=== PATIENT | male | born 1960 | race Caucasian/White ===

== ENCOUNTER 2022-06-18 14:17 | Inpatient (IN) | payer OTHER ==
[~2022-06-18] VITALS: Ht 177.8 cm; Wt 105.5 kg
[~2022-06-18 14:17] MED LIST: OME20GT PO
[2022-06-18 15:17] LABS: Basophils # (auto) 0.1 10 ^3/uL (0-0.2); Basophils % (auto) 0.9 % (0.0-2.0); Eosinophils # (auto) 0.1 10 ^3/uL (0-0.8); Eosinophils % (auto) 1.5 % (0.0-7.0); Hematocrit 43.8 % (41.0-53.0); Hemoglobin 14.8 g/dL (13.5-17.5); Lymphocytes # (auto) 3.4 10 ^3/uL (0.4-5.4); Lymphocytes % (auto) 49.3 % (10.0-50.0); Mean Corpuscular Hemoglobin 35.2 pg (28.0-32.0); Mean Corpuscular Hgb Conc. 33.9 g/dL (32.0-36.0); Mean Corpuscular Volume 104.1 fL (80.0-100.0); Monocytes # (auto) 0.7 10 ^3/uL (0-1.3); Monocytes % (auto) 10.6 % (0.0-12.0); Neutrophils # (auto) 2.6 10 ^3/uL (1.6-8.6); Neutrophils % (auto) 37.7 % (37.0-80.0); Nucleated Red Blood Cells % 0.1 %; Red Blood Cells 4.21 10^6/uL (4.5-5.90); Red Cell Distribution Width 14.9 % (11.8-14.3); White Blood Cell 6.9 10^3/uL (4.4-10.8)
[2022-06-18 15:32] LABS: INR 1.11 (0.9-1.15); Partial Thromboplastin Time 27.6 sec (24.6-33.4)
[2022-06-18 15:34] LABS: Calcium 8.7 mg/dL (8.5-10.1); Magnesium 1.9 mg/dL (1.6-2.6); Potassium 4.1 mmol/L (3.5-5.1)
[2022-06-18 15:38] LABS: BUN/Creatinine Ratio 8.9; Bilirubin, Total 2.3 mg/dL (0.2-1.0); Total Protein 7.1 g/dL (6.4-8.2)
[2022-06-18] MEDS ORDERED: ENOXAPARIN SOD 120 MG/0.8 ML SYRINGE SC ONE (17:15)
[2022-06-18] MEDS ORDERED: FUROSEMIDE 40 MG/4 ML VIAL IV ONE (17:30)
[2022-06-18] MEDS ORDERED: MORPHINE SULFATE 4 MG/ML SYR/VIAL IV ONE (17:30)
[2022-06-18] MEDS ORDERED: HEPARIN SODIUM (PORCINE) 5000 UNITS/ML 1ML VIAL IV ONE (21:30)
[2022-06-18] MEDS: HEPARIN DRIP/D5W 100UNITS/ML 250 ML IV SCH (22:00)
[2022-06-18 22:07] LABS: INR 1.17 (0.9-1.15); Partial Thromboplastin Time 34.7 sec (24.6-33.4)
[2022-06-18] MEDS ORDERED: ATORVASTATIN 20 MG TAB PO ONE (22:15)
[2022-06-18] MEDS ORDERED: ACETAMINOPHEN 325 MG TAB PO PRN (22:15)
[2022-06-18] MEDS ORDERED: MORPHINE SULFATE INJ 2 MG/ml SYRG IV PRN (22:15)
[2022-06-18] MEDS ORDERED: NITROGLYCERIN 0.4 MG SL TAB SL PRN (22:15)
[2022-06-18] MEDS ORDERED: ONDANSETRON HCL 4 MG/2 ML VIAL IV PRN (22:15)
[2022-06-18 22:20] LABS: Urine WBC None Seen /hpf (0 - 3)
[2022-06-18 22:26] LABS: Urine Bacteria NONE SEEN /hpf (None Seen); Urine Blood Negative /uL (Negative); Urine Specific Gravity 1.006 (1.001-1.035)
[2022-06-18 22:41] LABS: Hematocrit 40.3 % (41.0-53.0); Hemoglobin 13.8 g/dL (13.5-17.5); Mean Corpuscular Hemoglobin 35.4 pg (28.0-32.0); Mean Corpuscular Hgb Conc. 34.1 g/dL (32.0-36.0); Mean Corpuscular Volume 103.8 fL (80.0-100.0); Red Blood Cells 3.89 10^6/uL (4.5-5.90); Red Cell Distribution Width 15.4 % (11.8-14.3); White Blood Cell 8.5 10^3/uL (4.4-10.8)
[2022-06-18 22:42] LABS: Basophils % (manual) 0 (0.0-2.0); Blast Cells 0; Metamyelocytes % 0; Myelocytes % 0; Promyelocytes % 0; Reactive Lymphocytes 0
[2022-06-18 23:51] LABS: Band Neutrophils % (manual) 3; Eosinophils % (manual) 4 (0-7); Lymphocytes % (manual) 56 (10.0-50.0); Monocytes % (manual) 5 (0-12)
[2022-06-19] VITALS (9 sets, daily range): BP systolic 93–119; BP diastolic 62–84
[2022-06-19 05:16] LABS: Basophils # (auto) 0.1 10 ^3/uL (0-0.2); Eosinophils # (auto) 0.3 10 ^3/uL (0-0.8); Lymphocytes # (auto) 4.1 10 ^3/uL (0.4-5.4); Mean Corpuscular Volume 104.9 fL (80.0-100.0); Monocytes # (auto) 0.7 10 ^3/uL (0-1.3)
[2022-06-19 05:17] LABS: Basophils % (auto) 0.9 % (0.0-2.0); Eosinophils % (auto) 4.2 % (0.0-7.0); Hematocrit 40.8 % (41.0-53.0); Hemoglobin 14.2 g/dL (13.5-17.5); Lymphocytes % (auto) 54.7 % (10.0-50.0); Mean Corpuscular Hemoglobin 36.5 pg (28.0-32.0); Mean Corpuscular Hgb Conc. 34.8 g/dL (32.0-36.0); Monocytes % (auto) 9.1 % (0.0-12.0); Neutrophils # (auto) 2.3 10 ^3/uL (1.6-8.6); Neutrophils % (auto) 31.1 % (37.0-80.0); Nucleated Red Blood Cells % 0.6 %; Red Blood Cells 3.89 10^6/uL (4.5-5.90); Red Cell Distribution Width 15.3 % (11.8-14.3); White Blood Cell 7.4 10^3/uL (4.4-10.8)
[2022-06-19 05:18] LABS: Albumin 2.6 g/dL (3.4-5.0); Potassium 3.7 mmol/L (3.5-5.1)
[2022-06-19 05:22] LABS: BUN/Creatinine Ratio 14.5; Bilirubin, Total 2.8 mg/dL (0.2-1.0); Total Protein 6.7 g/dL (6.4-8.2)
[2022-06-19] MEDS: hydrALAZINE HCL 20 MG/ML VL IV SCH ×4 (06:00→18:00)
[2022-06-19 06:04] LABS: INR 1.17 (0.9-1.15); Partial Thromboplastin Time 51.2 sec (24.6-33.4)
[2022-06-19] MEDS: FUROSEMIDE 20 MG/2 ML VIAL IV SCH ×2 (06:28→18:00)
[2022-06-19] MEDS ORDERED: LISINOPRIL 10 MG TAB PO SCH (10:00)
[2022-06-19] MEDS: PANTOPRAZOLE 40 MG TAB PO SCH (10:11)
[2022-06-19] MEDS: ASPirin 81 mg TAB PO SCH (10:11)
[2022-06-19] MEDS: CARVEDILOL 3.125 MG TAB PO SCH ×2 (10:12→21:55)
[2022-06-19 10:30] LABS: INR 1.16 (0.9-1.15); Partial Thromboplastin Time 61.4 sec (24.6-33.4)
[2022-06-19] MEDS ORDERED: LIDOCAINE 2%HCL (LOCAL ANESTH.) INJ 20ML MDV ONE (13:01)
[2022-06-19] MEDS ORDERED: IOHEXOL 350 MG/ML 100ML IJ ONE ×2 (13:01→14:29)
[2022-06-19] MEDS ORDERED: ANGIOMAX 250 MG VIAL IV ONE (13:13)
[2022-06-19] MEDS ORDERED: SODIUM CHL 0.9% 50 ML ONE (13:14)
[2022-06-19] MEDS ORDERED: fentaNYL CITRATE 100 MCG/2 ML VL ONE ×2 (13:14→14:18)
[2022-06-19] MEDS ORDERED: MIDAZOLAM HCL 2MG/2ML 2ml VIAL (1mg/ml) ONE ×2 (13:14→14:18)
[2022-06-19] MEDS ORDERED: HEPARIN DRIP/D5W 100UNITS/ML 250 ML IV SCH (14:15)
[2022-06-19] MEDS ORDERED: TICAGRELOR 90 MG TAB ONE (14:34)
[2022-06-19] MEDS ORDERED: IPRATROPIUM BROM 0.5 MG/2.5ML INH SOL NEB ONE (18:45)
[2022-06-19] MEDS ORDERED: ALBUTEROL SULF 2.5 MG/0.5ML(0.5%) NEB SOLN NEB ONE (18:45)
[2022-06-19] MEDS: TICAGRELOR 90 MG TAB PO SCH (21:55)
[2022-06-19] MEDS: ATORVASTATIN 20 MG TAB PO SCH (21:56)
[2022-06-20] VITALS (8 sets, daily range): BP systolic 94–111; BP diastolic 56–67
[2022-06-20] MEDS: hydrALAZINE HCL 20 MG/ML VL IV SCH ×5 (06:00→23:54)
[2022-06-20] MEDS: FUROSEMIDE 20 MG/2 ML VIAL IV SCH ×2 (06:10→18:45)
[2022-06-20 06:48] LABS: Basophils # (auto) 0 10 ^3/uL (0-0.2); Eosinophils # (auto) 0.2 10 ^3/uL (0-0.8); Neutrophils # (auto) 2.2 10 ^3/uL (1.6-8.6)
[2022-06-20 06:52] LABS: Basophils % (auto) 0.6 % (0.0-2.0); Eosinophils % (auto) 4.1 % (0.0-7.0); Hematocrit 40.1 % (41.0-53.0); Hemoglobin 13.7 g/dL (13.5-17.5); Lymphocytes # (auto) 2.5 10 ^3/uL (0.4-5.4); Lymphocytes % (auto) 43.3 % (10.0-50.0); Mean Corpuscular Hemoglobin 35.3 pg (28.0-32.0); Mean Corpuscular Hgb Conc. 34.2 g/dL (32.0-36.0); Mean Corpuscular Volume 103.1 fL (80.0-100.0); Monocytes # (auto) 0.7 10 ^3/uL (0-1.3); Monocytes % (auto) 12.9 % (0.0-12.0); Neutrophils % (auto) 39.1 % (37.0-80.0); Nucleated Red Blood Cells % 0.2 %; Red Blood Cells 3.89 10^6/uL (4.5-5.90); Red Cell Distribution Width 14.8 % (11.8-14.3); White Blood Cell 5.7 10^3/uL (4.4-10.8)
[2022-06-20 06:58] LABS: BUN/Creatinine Ratio 23.2
[2022-06-20] MEDS: ASPirin 81 mg TAB PO SCH (09:31)
[2022-06-20] MEDS: PANTOPRAZOLE 40 MG TAB PO SCH (09:31)
[2022-06-20] MEDS: TICAGRELOR 90 MG TAB PO SCH ×2 (09:31→21:35)
[2022-06-20] MEDS ORDERED: FUROSEMIDE 40 MG/4 ML VIAL IV ONE (11:00)
[2022-06-20] MEDS: TEMAZEPAM 15 MG CAP PO PRN (21:34)
[2022-06-20] MEDS: ATORVASTATIN 20 MG TAB PO SCH (21:34)
[2022-06-20] MEDS: CARVEDILOL 3.125 MG TAB PO SCH (21:37)
[2022-06-21 05:00] VITALS: BP 98/55
[2022-06-21] MEDS: hydrALAZINE HCL 20 MG/ML VL IV SCH ×3 (05:22→18:00)
[2022-06-21] MEDS: FUROSEMIDE 20 MG/2 ML VIAL IV SCH (06:00)
[2022-06-21 06:08] LABS: Eosinophils # (auto) 0.3 10 ^3/uL (0-0.8); Eosinophils % (auto) 3.9 % (0.0-7.0); Monocytes # (auto) 1.1 10 ^3/uL (0-1.3); Neutrophils # (auto) 2.8 10 ^3/uL (1.6-8.6); Nucleated Red Blood Cells % 0.2 %
[2022-06-21 06:11] LABS: Basophils # (auto) 0 10 ^3/uL (0-0.2); Basophils % (auto) 0.4 % (0.0-2.0); Hematocrit 42.4 % (41.0-53.0); Lymphocytes # (auto) 3.4 10 ^3/uL (0.4-5.4); Lymphocytes % (auto) 44.8 % (10.0-50.0); Mean Corpuscular Hemoglobin 36.3 pg (28.0-32.0); Mean Corpuscular Hgb Conc. 35.5 g/dL (32.0-36.0); Mean Corpuscular Volume 102.4 fL (80.0-100.0); Neutrophils % (auto) 36.9 % (37.0-80.0); Red Blood Cells 4.14 10^6/uL (4.5-5.90); Red Cell Distribution Width 14.9 % (11.8-14.3); White Blood Cell 7.7 10^3/uL (4.4-10.8)
[2022-06-21 06:32] LABS: BUN/Creatinine Ratio 18.8; Calcium 8.4 mg/dL (8.5-10.1); Potassium 3.8 mmol/L (3.5-5.1)
[2022-06-21 09:00] VITALS: BP 104/68
[2022-06-21] MEDS ORDERED: LISINOPRIL 10 MG TAB PO SCH (10:00)
[2022-06-21] MEDS: ASPirin 81 mg TAB PO SCH (10:55)
[2022-06-21] MEDS: PANTOPRAZOLE 40 MG TAB PO SCH (10:56)
[2022-06-21] MEDS: CARVEDILOL 3.125 MG TAB PO SCH ×2 (10:56→21:29)
[2022-06-21] MEDS: TICAGRELOR 90 MG TAB PO SCH (10:56)
[2022-06-21 13:10] VITALS: BP 112/65
[2022-06-21 14:47] VITALS: BP 112/65
[2022-06-21 17:00] VITALS: BP 105/72
[2022-06-21] MEDS: ALBUTEROL SULF 2.5 MG/0.5ML(0.5%) NEB SOLN NEB SCH (18:48)
[2022-06-21] MEDS: IPRATROPIUM BROM 0.5 MG/2.5ML INH SOL NEB SCH (18:48)
[2022-06-21] MEDS: ATORVASTATIN 20 MG TAB PO SCH (20:52)
[2022-06-21] MEDS: TEMAZEPAM 15 MG CAP PO PRN (20:53)
[2022-06-21] MEDS ORDERED: CLOPIDOGREL 300 MG TAB PO ONE (21:00)
[2022-06-21] MEDS ORDERED: CLOPIDOGREL 300 MG TAB ONE (21:19)
[2022-06-21 22:00] VITALS: BP 113/57
[2022-06-22] MEDS: ALBUTEROL SULF 2.5 MG/0.5ML(0.5%) NEB SOLN NEB SCH ×2 (00:49→07:10)
[2022-06-22] MEDS: IPRATROPIUM BROM 0.5 MG/2.5ML INH SOL NEB SCH ×2 (00:50→07:10)
[2022-06-22 05:00] VITALS: BP 126/78
[2022-06-22] MEDS ORDERED: SODIUM CHLORIDE 0.9 % NEB SOLN 3ML NEB ONE (05:35)
[2022-06-22] MEDS: hydrALAZINE HCL 20 MG/ML VL IV SCH ×3 (06:00→12:10)
[2022-06-22 06:24] LABS: Eosinophils # (auto) 0.3 10 ^3/uL (0-0.8); Eosinophils % (auto) 4.4 % (0.0-7.0); Neutrophils # (auto) 2.6 10 ^3/uL (1.6-8.6)
[2022-06-22 06:26] LABS: Basophils # (auto) 0.1 10 ^3/uL (0-0.2); Hematocrit 43.1 % (41.0-53.0); Hemoglobin 14.8 g/dL (13.5-17.5); Lymphocytes # (auto) 3.1 10 ^3/uL (0.4-5.4); Lymphocytes % (auto) 43.5 % (10.0-50.0); Mean Corpuscular Hemoglobin 35.8 pg (28.0-32.0); Mean Corpuscular Hgb Conc. 34.4 g/dL (32.0-36.0); Mean Corpuscular Volume 104.1 fL (80.0-100.0); Monocytes # (auto) 1.1 10 ^3/uL (0-1.3); Monocytes % (auto) 15.1 % (0.0-12.0); Nucleated Red Blood Cells % 0.1 %; Red Blood Cells 4.14 10^6/uL (4.5-5.90); White Blood Cell 7.2 10^3/uL (4.4-10.8)
[2022-06-22 06:40] LABS: Potassium 4.1 mmol/L (3.5-5.1)
[2022-06-22 06:45] LABS: Albumin 2.4 g/dL (3.4-5.0); BUN/Creatinine Ratio 20.5; Bilirubin, Total 1.4 mg/dL (0.2-1.0); Calcium 8.5 mg/dL (8.5-10.1); Total Protein 6.3 g/dL (6.4-8.2)
[2022-06-22 08:05] VITALS: BP 114/67
[2022-06-22 09:00] VITALS: BP 114/67
[2022-06-22] MEDS: ASPirin 81 mg TAB PO SCH (09:58)
[2022-06-22] MEDS: CARVEDILOL 3.125 MG TAB PO SCH (09:59)
[2022-06-22] MEDS: PANTOPRAZOLE 40 MG TAB PO SCH (09:59)
[2022-06-22] MEDS ORDERED: FUROSEMIDE 20 MG/2 ML VIAL IV SCH (10:00)
[2022-06-22] MEDS ORDERED: CLOPIDOGREL BISULFATE 75 MG TAB PO SCH (10:00)
[2022-06-22 13:00] VITALS: BP 93/62
[2022-06-22] MEDS ORDERED: CLOP75TA70 PO (13:33)
[2022-06-22] MEDS ORDERED: CAR3125T PO (13:33)
[2022-06-22] MEDS ORDERED: FURO1TAB33 PO (13:33)
[2022-06-22] MEDS ORDERED: ASPI-325 PO (13:33)
[2022-06-22] MEDS ORDERED: ATOR20TA50 PO (13:33)
[2022-06-22 16:30] VITALS: BP 93/62
[2022-06-22 17:00] VITALS: BP 118/77
== END 2022-06-22 18:20 | disposition home or self-care (01) | DRG 174 ==
LOC: ER 14:17 → EDBD 14:17 → TELE 22:08 → TELE-EAST 06-19 12:46
PROVIDERS: ADMIT Nurse Practitioner; ATTEND Nurse Practitioner Acute Care
PROC: 027135Z Dilation of Coronary Artery, Two Arteries with Two Drug-eluting Intraluminal Devices, Percutaneous Approach (ICD-10-PCS; principal; 2022-06-19)
PROC: B211YZZ Fluoroscopy of Multiple Coronary Arteries using Other Contrast (ICD-10-PCS; 2022-06-19)
PROC: B2151ZZ Fluoroscopy of Left Heart using Low Osmolar Contrast (ICD-10-PCS; 2022-06-19)
DX: I21.4 Non-ST elevation (NSTEMI) myocardial infarction (principal); I50.23 Acute on chronic systolic (congestive) heart failure; I11.0 Hypertensive heart disease with heart failure; R74.01 Elevation of levels of liver transaminase levels; E66.9 Obesity, unspecified; E78.5 Hyperlipidemia, unspecified; R09.89 Other specified symptoms and signs involving the circulatory and respiratory systems; R79.89 Other specified abnormal findings of blood chemistry; Z20.822 Contact with and (suspected) exposure to COVID-19; Z79.82 Long term (current) use of aspirin; Z79.899 Other long term (current) drug therapy; Z87.891 Personal history of nicotine dependence; Z91.14 Patient's other noncompliance with medication regimen; Z68.33 Body mass index [BMI] 33.0-33.9, adult
CPT/HCPCS: 36415; 36600; 71045; 80048; 80053; 81001; 82805; 82962; 83735; 83880; 84484; 85007; 85025; 85027; 85610; 85730; 87426; 92928; 93005; 93306; 93454; 94640; 96365; 96372; 96375; 99152; 99153; 99291; C1874; G0378; J2250

== ENCOUNTER 2023-09-14 13:03 | Inpatient (IN) | payer OTHER ==
[~2023-09-14] VITALS: Ht 177.8 cm; Wt 109.0 kg
[~2023-09-14 13:03] MED LIST changes: +ASPI-325 PO; +ATOR20TA50 PO; +CAR3125T PO; +CLOP75TA70 PO; +FURO1TAB33 PO
[2023-09-14] MEDS ORDERED: methylPREDNISolone SOD SUCC 125 MG/2 ML VL IV ONE (13:15)
[2023-09-14 13:49] LABS: Basophils # (auto) 0.1 10 ^3/uL (0-0.2); Eosinophils # (auto) 0.7 10 ^3/uL (0-0.8); Hemoglobin 12.3 g/dL (13.5-17.5); Neutrophils # (auto) 1.4 10 ^3/uL (1.6-8.6)
[2023-09-14 13:51] LABS: Basophils % (auto) 0.8 % (0.0-2.0); Hematocrit 36.7 % (41.0-53.0); Lymphocytes # (auto) 3.6 10 ^3/uL (0.4-5.4); Lymphocytes % (auto) 53.9 % (10.0-50.0); Mean Corpuscular Hemoglobin 35.6 pg (28.0-32.0); Mean Corpuscular Hgb Conc. 33.6 g/dL (32.0-36.0); Monocytes # (auto) 0.9 10 ^3/uL (0-1.3); Neutrophils % (auto) 20.3 % (37.0-80.0); Nucleated Red Blood Cells % 0.3 %; Red Blood Cells 3.46 10^6/uL (4.5-5.90); Red Cell Distribution Width 15.6 % (11.8-14.3); White Blood Cell 6.7 10^3/uL (4.4-10.8)
[2023-09-14 14:00] VITALS: PULSE 91; RESP 22; TEMP 98; O2SAT 94
[2023-09-14 14:35] LABS: Alanine Aminotransferase 101 U/L (7-40); Albumin 2.7 g/dL (3.2-4.8); Alkaline Phosphatase 111 U/L (46-116); Anion Gap 5 (5-15); Aspartate Aminotransferase 154 U/L (13-40); BUN/Creatinine Ratio 13.9 (10.0-20.0); Blood Urea Nitrogen 11 mg/dL (9-23); Calcium 8.4 mg/dL (8.7-10.4); Carbon Dioxide 27 mmol/L (20-30); Chloride 108 mmol/L (98-107); Glucose 115 mg/dL (74-106); Magnesium 1.8 mg/dL (1.6-2.6); Sodium 140 mmol/L (136-145)
[2023-09-14 14:36] LABS: Bilirubin, Total 1.7 mg/dL (0.2-1.0); Total Protein 5.8 g/dL (5.7-8.2)
[2023-09-14] MEDS ORDERED: ALBUTEROL SULF 2.5 MG/0.5ML(0.5%) NEB SOLN NEB STA (15:04)
[2023-09-14] MEDS ORDERED: IPRATROPIUM BROM 0.5 MG/2.5ML INH SOL NEB STA (15:04)
[2023-09-14] MEDS ORDERED: IPRATROPIUM BROM 0.5 MG/2.5ML INH SOL NEB ONE (15:30)
[2023-09-14] MEDS ORDERED: DOCUSATE SOD 100 MG CAP PO PRN (15:30)
[2023-09-14] MEDS ORDERED: FUROSEMIDE 40 MG/4 ML VIAL IV ONE (15:30)
[2023-09-14] MEDS ORDERED: ONDANSETRON HCL 4 MG/2 ML VIAL IV PRN (15:30)
[2023-09-14] MEDS ORDERED: MORPHINE SULFATE INJ 2 MG/ml SYRG IV PRN (15:30)
[2023-09-14] MEDS ORDERED: ALBUTEROL SULF 2.5 MG/0.5ML(0.5%) NEB SOLN NEB ONE (15:30)
[2023-09-14 15:50] VITALS: BP 100/52; PULSE 98; RESP 25; O2SAT 92
[2023-09-14 16:21] LABS: Albumin 2.6 g/dL (3.2-4.8); Bilirubin, Total 1.5 mg/dL (0.2-1.0); Blood Alcohol 4.3 mg/dL (<10); Total Protein 5.6 g/dL (5.7-8.2)
[2023-09-14 16:32] LABS: INR 1.21 (0.9-1.15); Prothrombin Time 12.5 sec (9.3-11.8)
[2023-09-14 16:54] LABS: Base Excess -0.9 mmol/L (-2.0-2.0)
[2023-09-14 18:00] VITALS: BP 107/45; PULSE 96; RESP 17; O2SAT 99
[2023-09-14] MEDS ORDERED: IPRATROPIUM BROM 0.5 MG/2.5ML INH SOL NEB SCH (18:00)
[2023-09-14] MEDS ORDERED: ALBUTEROL SULF 2.5 MG/0.5ML(0.5%) NEB SOLN NEB SCH (18:00)
[2023-09-14] MEDS ORDERED: FUROSEMIDE 20 MG/2 ML VIAL IV SCH (18:00)
[2023-09-14 20:41] LABS: Urine Bacteria NONE SEEN /hpf (None Seen); Urine Blood Negative /uL (Negative); Urine Clarity Clear (Clear); Urine Color Yellow (Yellow); Urine Protein, UAD Negative (Negative); Urine Specific Gravity 1.011 (1.001-1.035); Urine WBC 1 /hpf (0 - 3); Urine pH 6.5 (5.0-8.0)
[2023-09-14] MEDS ORDERED: CARVEDILOL 3.125 MG TAB PO SCH (22:00)
[2023-09-14] MEDS ORDERED: ATORVASTATIN 20 MG TAB PO SCH (22:00)
[2023-09-14] MEDS ORDERED: ENOXAPARIN SOD 100 MG/1 ML SYRINGE SC SCH (22:00)
[2023-09-14] MEDS ORDERED: methylPREDNISolone SOD SUCC 125 MG/2 ML VL IV SCH (22:00)
[2023-09-14] MEDS ORDERED: ENOXAPARIN SOD 120 MG/0.8 ML SYRINGE SC SCH (22:00)
[2023-09-15] MEDS ORDERED: ASPirin-EC 81 mg tab PO SCH (10:00)
[2023-09-15] MEDS ORDERED: PANTOPRAZOLE 40 MG/10 ML VIAL INJ IV SCH (10:00)
[2023-09-15] MEDS ORDERED: CLOPIDOGREL BISULFATE 75 MG TAB PO SCH (10:00)
[2023-09-15] MEDS ORDERED: AZITHROMYCIN 500MG/ 250ML 250 ML IV SCH (10:00)
== END 2023-09-14 19:42 | disposition left against medical advice (07) | DRG 140 ==
LOC: ER 13:03 → TELE 15:42
PROVIDERS: ADMIT Nurse Practitioner Family; ATTEND Nurse Practitioner Family
PROC: 5A09357 Assistance with Respiratory Ventilation, Less than 24 Consecutive Hours, Continuous Positive Airway Pressure (ICD-10-PCS; principal; 2023-09-14)
DX: J44.1 Chronic obstructive pulmonary disease with (acute) exacerbation (principal); J96.01 Acute respiratory failure with hypoxia; E44.1 Mild protein-calorie malnutrition; I11.0 Hypertensive heart disease with heart failure; I50.42 Chronic combined systolic (congestive) and diastolic (congestive) heart failure; R17 Unspecified jaundice; E78.5 Hyperlipidemia, unspecified; J43.9 Emphysema, unspecified; R00.0 Tachycardia, unspecified; R74.01 Elevation of levels of liver transaminase levels; F17.210 Nicotine dependence, cigarettes, uncomplicated; Z53.29 Procedure and treatment not carried out because of patient's decision for other reasons; Z68.34 Body mass index [BMI] 34.0-34.9, adult; Z83.3 Family history of diabetes mellitus; I25.2 Old myocardial infarction; Z79.899 Other long term (current) drug therapy; Z71.6 Tobacco abuse counseling
CPT/HCPCS: 36415; 36600; 71045; 76705; 80053; 80076; 80320; 81001; 82805; 83735; 83880; 84484; 85025; 85379; 85610; 93005; 94644; 94660; 96374; 96375; 99291; G0378